=== PATIENT | male | born 2000 | race Caucasian/White ===

== ENCOUNTER 2023-09-11 20:54 | Emergency (ER) | payer OTHER ==
[~2023-09-11] VITALS: Ht 180.3 cm; Wt 81.8 kg
[2023-09-11] MEDS: ibuprofen tablet 400 MG TABLET PO ONE (22:26)
[2023-09-11] MEDS: TETanus/Pertussis (Acell)/Diphther VAC/PF (Tdap-Adult) 0.5ml syringe IMVAC ONE (22:27)
[2023-09-11] MEDS: bacitracin 15gm ointment TP ONE (22:27)
[2023-09-11] MEDS: LIDOcaine 1% W/epiNEPHrine 1:100,000 20ml vial SQ ONE (22:28)
[2023-09-11] MEDS ORDERED: MORP15TA PO (23:59)
[2023-09-12] MEDS: morphine sulfate IR 15MG tablet PO STA (00:19)
[2023-09-12 00:29] VITALS: BP 118/73; PULSE 84; RESP 18; TEMP 98.2; O2SAT 95
== END 2023-09-12 00:40 | disposition home or self-care (01) ==
LOC: ER 20:56
DX: S51.811A Laceration without foreign body of right forearm, initial encounter (principal); M79.642 Pain in left hand; Z79.899 Other long term (current) drug therapy; W19.XXXA Unspecified fall, initial encounter; Y93.89 Activity, other specified; Y92.89 Other specified places as the place of occurrence of the external cause; Y99.8 Other external cause status
CPT/HCPCS: 12005; 73130; 90471; 90715; 99284; J3490; A6449